=== PATIENT | male | born 1980 | race Hispanic/Latino ===

== ENCOUNTER 2023-01-23 07:29 | Outpatient (CLI) | payer BC | END 2023-01-23 07:30 | disposition home or self-care (01) | LOC: BICMRI 07:29 | PROVIDERS: ATTEND Orthopaedic Surgery | DX: S89.92XD Unspecified injury of left lower leg, subsequent encounter (principal); S83.242A Other tear of medial meniscus, current injury, left knee, initial encounter; M25.862 Other specified joint disorders, left knee ==